=== PATIENT | female | born 1990 | race African-American/Black ===

== ENCOUNTER 2017-06-05 20:19 | Inpatient (IN) | payer OTHER ==
[2017-06-05] VITALS (15 sets, daily range): BP systolic 102–151; BP diastolic 70–121; PULSE 62–132; RESP 18; TEMP 98.1–98.6
[~2017-06-05] VITALS: Ht 162.6 cm; Wt 92.1 kg
[~2017-06-05 20:19] MED LIST: DIPHTH/TETANUS/ACEL PERTUSSIS (BOOSTER) 0.5 ML VIAL/PFS IM ONE; FERRTAB PO; MEASLES, MUMPS, RUBELLA VACCINE 0.5 ML VIAL SQ ONE; PREN1CAP7 PO
[2017-06-05] MEDS ORDERED: LACTATED RINGER'S 1000 ML INJ 1,000 ML IV SCH (20:41)
[2017-06-05] MEDS ORDERED: LACTATED RINGER'S 1000 ML INJ 1,000 ML IV PRN (20:41)
--- NOTE | 2017-06-05 20:41 | HHI.HP ---
HPI Chief Complaint Contractions and by water broke at 6 PM Date Seen: Jun 05, 2017 Time Seen: 20:35 Travel History International Travel<30 Days: No Contact w/Intl Traveler<30Days: No Known Affected Area: No History of Present Illness HPI 27-year-old black female at 40 weeks and 6 days presents in active labor with ruptured membranes, cervix is 4--5 cm 90% and 0 station, heart rate tracing is reactive and contractions are noted on the monitor, [facility] Weeks Gestation: 40 Para: 2 : 3 History Obstetric History Obstetric History Patient had an eclamptic seizure after her first delivery but no blood pressure issues and the second delivery Social History Alcohol Use: No Tobacco Use: No Substance Abuse: No Allergies-Medications (Allergen,Severity, Reaction): Coded Allergies: No Known Allergies (Unverified Adverse Reaction, Unknown, 06/03/17) Home Meds Active Scripts [id number] Sod (Ferraplus) 90-1-50 Mg Tab, 1 TAB PO DAILY, #30 BOTTLE 7 Refills Prov:Paty PorrasP 03/10/17 W/O Vit A W/ Fe Fumar (Citranatal [place]) 27-1-260 Mg Cap, 1 CAP PO DAILY for Nutritional Supplement, #30 CAP 4 Refills Prov:Janeth Ny CNM [facility] 01/08/17 Discontinued Scripts Amoxicillin (Amoxicillin) 500 Mg Tab, 500 MG PO TID for Infection, #21 TAB 0 Refills Prov:Paty PorrasP 05/27/17 Review of Systems General / Constitutional: No: Fever, Weight Gain, Chills, Other Eyes: No: Diploplia, Blurred Vision, Visual changes, Pain, Photophobia HENT: No: Headaches, Vertigo, Lightheadedness Cardiovascular: No: Irregular Rhythm, Chest Pain or Discomfort, Palpitations, Tachycardia, Syncope, Varicosities, Edema, Cyanosis Respiratory: No: Cough, Short of Breath, Other Gastrointestinal: Abdominal Pain, No: Nausea, Vomiting, Diarrhea Genitourinary: No: Decreased Urinary Output, Oliguria Musculoskeletal: No: Limited ROM, Weakness, Cramping, Edema, Pain Skin: No Rash, No Itching, No Dryness, No Lumps, No Change in Pigmentation, No Change in Nails, No Alopecia, No Lesions Neurologic: No: Weakness, Dizziness, Syncope, Focal Abnormalities, Coordination Problem, Headache, Slurred Speech, Seizures Psychiatric: No: Depression, Suicidal Ideations, Homicidal Ideation Endocrine: No: Heat Intolerance, Cold Intolerance, Polydipsia, Polyuria, Other Physical Exam Narrative GENERAL: Well-nourished, well-developed patient. SKIN: Warm and dry. HEAD: Normocephalic and atraumatic. EYES: No scleral icterus. No injection or drainage. ENT: No nasal drainage noted. Mucous membranes pink. Airway patent. NECK: Supple, trachea midline. No JVD. CARDIOVASCULAR: Regular rate and rhythm without murmurs, gallops, or rubs. RESPIRATORY: Breath sounds equal bilaterally. No accessory muscle use. BREASTS: Bilateral exam showed no masses , no retractions, no nipple discharge. ABDOMEN/GI: Abdomen soft, non-tender, bowel sounds present, no rebound, no guarding Gravid to [-40] weeks size Fundal Height: [40-] GENITOURINARY: External Genitalia: intact and normal in appearance BUS glands: [-] Cervix: [-] Dilatation: [4-5-] Effacement: [90-] Station: [0-] Presentation: [vtx-] Membranes: [ ruptured] Uterine Contractions: [reg-] FHT's: Category: [1-] Baseline: [-133] Reactive: [-yes] Variability: [mod-] Decels: [-none] EXTREMITIES: No cyanosis or edema. BACK: Nontender without obvious deformity. No CVA tenderness. NEUROLOGICAL: Awake and alert. Motor and sensory grossly within normal limits. Five out of 5 muscle strength in all muscle groups. Normal speech. Caprini VTE Risk Assessment Caprini VTE Risk Assessment: No/Low Risk (score <= 1) Caprini Risk Assessment Model Point Value = 1 Point Value = 2 Point Value = 3 Point Value = 5 Age 41-60 Minor surgery BMI > 25 kg/m2 Swollen legs Varicose veins or History of unexplained or recurrent spontaneous Oral contraceptives or hormone replacement Sepsis (< 1 month) Serious lung disease, including pneumonia (< 1 month) Abnormal pulmonary function Acute myocardial infarction Congestive heart failure (< 1 month) History of inflammatory bowel disease Medical patient at bed rest Age 61-74 Arthroscopic surgery Major open surgery (> 45 min) Laparoscopic surgery (> 45 min) Malignancy Confined to bed (> 72 hours) Immobilizing plaster cast Central venous access Age >= 75 History of VTE Family history of VTE Factor V Leiden Prothrombin [id number] Lupus anticoagulant Anticardiolipin antibodies Elevated serum homocysteine Heparin-induced thrombocytopenia Other congenital or acquired thrombophilia Stroke (< 1 month) Elective arthroplasty Hip, pelvis, or leg fracture Acute spinal cord injury (< 1 month) Prophylaxis Regimen Total Risk Factor Score Risk Level Prophylaxis Regimen 0-1 Low Early ambulation 2 Moderate Order ONE of the following: *Sequential Compression Device (SCD) *Heparin 5000 units SQ BID 3-4 Higher Order ONE of the following medications: *Heparin 5000 units SQ TID *Enoxaparin/Lovenox 40 mg SQ daily (WT < 150 kg, CrCl > 30 mL/min) *Enoxaparin/Lovenox 30 mg SQ daily (WT < 150 kg, CrCl > 10-29 mL/min) *Enoxaparin/Lovenox 30 mg SQ BID (WT < 150 kg, CrCl > 30 mL/min) AND/OR *Sequential Compression Device (SCD) 5 or more Highest Order ONE of the following medications: *Heparin 5000 units SQ TID (Preferred with Epidurals) *Enoxaparin/Lovenox 40 mg SQ daily (WT < 150 kg, CrCl > 30 mL/min) *Enoxaparin/Lovenox 30 mg SQ daily (WT < 150 kg, CrCl > 10-29 mL/min) *Enoxaparin/Lovenox 30 mg SQ BID (WT < 150 kg, CrCl > 30 mL/min) AND *Sequential Compression Device (SCD) Assessment/Plan Assessment and Plan Patient 27-year-old black female 40 weeks who comes in active labor. She is her cervix is 4-5 cm dilated 90% and 0 station and membranes ruptured at 6 PM this evening Patient does not want epidural. Plan is admission to labor and delivery managed labor appropriately and anticipate vaginal delivery shortly Mynor Ortiz II, MD Jun 05, 2017 20:41
[2017-06-05] MEDS ORDERED: OXYTOCIN 30 UNITS-500ML PREMIX 500 ML IV ONE (20:45)
[2017-06-05] MEDS ORDERED: PENICILLIN G POTASSIUM INJ 5,000,000 UNITS in SODIUM CHLORIDE 0.9% INJ 100 ML IV ONE (20:45)
[2017-06-05] MEDS ORDERED: SODIUM CHLORID 0.9% 500 ML INJ 500 ML IV PRN (20:45)
[2017-06-05] MEDS ORDERED: MINERAL OIL 10 ML VIAL TOPICAL PRN (20:45)
[2017-06-05] MEDS ORDERED: LIDOCAINE HCL 1% 50 ML VIAL INFIL PRN (20:45)
[2017-06-05] MEDS ORDERED: CITRIC ACID-SODIUM CITRATE LIQ 30 ML UDC PO SCH (20:45)
[2017-06-05] MEDS ORDERED: LIDOCAINE HCL 1% 50 ML VIAL I-DERMAL PRN (20:45)
[2017-06-05] MEDS ORDERED: SODIUM CHLOR 0.9% 1000 ML INJ 1,000 ML IV PRN (21:01)
[2017-06-05 21:11] LABS: AUTOMATED NEUTROPHIL # 8.3 TH/MM3 (1.8-7.7); BASOPHIL % 0.1 % (0.0-2.0); EOSINOPHIL % 0.2 % (0.0-4.0); HEMATOCRIT 32.7 % (35.0-46.0); HEMOGLOBIN 11.1 GM/DL (11.6-15.3); LYMPH % 13.2 % (9.0-44.0); LYMPHOCYTE # 1.4 TH/MM3 (1.0-4.8); MEAN CELL VOLUME 88.8 FL (80.0-100.0); MEAN CORPUSCULAR HGB CONC 33.8 % (32.0-36.0); MEAN PLATELET VOLUME 9.2 FL (7.0-11.0); MONO % 7.1 % (0.0-8.0); MONOCYTE # 0.7 TH/MM3 (0-0.9); NEUT % 79.4 % (16.0-70.0); PLATELET COUNT 97 TH/MM3 (150-450); RED BLOOD COUNT 3.68 MIL/MM3 (4.00-5.30); RED CELL DISTRIBUTION WIDTH 13.9 % (11.6-17.2); WHITE BLOOD COUNT 10.5 TH/MM3 (4.0-11.0)
[2017-06-05 21:13] LABS: BILIRUBIN, URINE NEG (NEG); BLOOD, URINE NEG (NEG); GLUCOSE,URINE NEG (NEG); HYALINE CAST, URINE 1 /lpf (RARE); KETONE, URINE 10 mg/dL (NEG); MUCUS URINE FEW /lpf (OCC); NITRITE,URINE NEG (NEG); SQUAMOUS EPITHELIAL CELL URINE 1 /hpf (0-5); URINE COLOR YELLOW (YELLW/STRAW); URINE LEUKOCYTE ESTERASE LARGE (NEG)
--- NOTE | 2017-06-05 22:26 | PD.OB.DELI ---
Weeks gestation: 40 Gest age assessed date: Jun 05, 2017 Pt started active labor?: Yes Anesthesia: None Episiotomy: None Vaginal Delivery: Normal, Spontaneous Presentation: Occiput anterior Nuchal Cord: None Delayed cord clamping (45 sec): Yes Infant: Male Delivery date: Jun 05, 2017 Delivery time: 22:05 One Minute : 8 Five Minute : 9 Placenta: Spontaneous delivery Laceration: Vaginal laceration Estimated blood loss: <100ml Additional Information Delivered by Judd Hutchison MD, R3 Jun 05, 2017 22:26
[2017-06-05] MEDS ORDERED: BENZOCAINE 20% TOPICAL SPRAY 60 ML CAN TOPICAL PRN (22:30)
[2017-06-05] MEDS ORDERED: OXYTOCIN 30 UNITS-500ML PREMIX 500 ML IV SCH (22:30)
[2017-06-05] MEDS ORDERED: DOCUSATE SODIUM 50 MG/SENNA 8.6 MG TAB PO PRN (22:30)
[2017-06-05] MEDS ORDERED: ACETAMINOPHEN 325 MG TAB PO PRN (22:30)
[2017-06-05] MEDS ORDERED: oxyCODONE/ACETAMINOPHEN 5 MG/325 MG TAB PO PRN ×2 (22:30)
[2017-06-05] MEDS ORDERED: ALUMINUM/MAGNESIUM/SIMETH 30 ML CUP PO PRN (22:30)
[2017-06-05] MEDS ORDERED: WITCH HAZEL 50%/GLYCERIN 12.5% 40 PAD JAR TOPICAL PRN (22:30)
[2017-06-05] MEDS ORDERED: ZOLPIDEM TARTRATE 5 MG TAB PO PRN (22:30)
[2017-06-05] MEDS ORDERED: SODIUM CHLORIDE 0.9% FLUSH 10 ML FLUSH IV FLUSH PRN (22:30)
[2017-06-05] MEDS ORDERED: ONDANSETRON ODT 4 MG TAB PO PRN (22:30)
[2017-06-06 00:23] VITALS: BP 132/76; PULSE 68; RESP 16; TEMP 97.9
[2017-06-06] MEDS ORDERED: PENICILLIN G POTASSIUM INJ 2,500,000 UNITS in SODIUM CHLORIDE 0.9% INJ 100 ML IV SCH (01:00)
[2017-06-06] MEDS: IBUPROFEN 800 MG TAB PO PRN (01:35)
[2017-06-06 03:39] VITALS: BP 128/87; PULSE 58; RESP 18; TEMP 98.4; O2SAT 100
[2017-06-06 07:50] VITALS: BP 120/79; PULSE 64; RESP 15; TEMP 97.8
--- NOTE | 2017-06-06 07:51 | HHI.OB ---
Subjective Post Day: 1 Remarks day #1. AFVSS overnight. Pain controlled. Decreased lochia. Denies dysuria. No breast tenderness. She is feeding the baby via breast and bottle. Appetite good. No nausea or vomiting. + flatus. Ambulating well. Denies calf pain, shortness of breath, or cough. Otherwise, she is doing well this morning and has no other complaints. Objective Vitals/I&O Vital Signs Date Time Temp Pulse Resp B/P (MAP) Pulse Ox O2 Delivery O2 Flow Rate FiO2 06/06/17 03:39 98.4 100 06/06/17 03:39 58 18 128/87 (101) 06/06/17 00:23 97.9 68 16 132/76 (94) 06/05/17 23:46 62 135/70 (91) 06/05/17 23:45 98.6 06/05/17 23:30 81 129/85 (100) 06/05/17 23:27 18 06/05/17 23:15 63 125/81 (96) 06/05/17 23:13 18 06/05/17 23:01 132/75 (94) 06/05/17 23:01 67 06/05/17 23:00 18 06/05/17 22:45 18 06/05/17 22:45 132 151/121 (131) 06/05/17 22:30 62 06/05/17 22:30 138/78 (98) 06/05/17 22:22 98.1 18 06/05/17 22:20 86 124/76 (92) 06/05/17 21:06 98.4 06/05/17 20:45 18 06/05/17 20:36 102/85 (91) 06/05/17 20:36 81 Objective Remarks GENERAL: Well-nourished, well-developed patient. CARDIOVASCULAR: Regular rate and rhythm without murmurs, gallops, or rubs. RESPIRATORY: Breath sounds equal bilaterally. No accessory muscle use. ABDOMEN/GI: Abdomen soft, non-tender. Fundus: Firm, non-tender at umbilicus. GENITOURINARY: Light to moderate bleeding. EXTREMITIES: No cyanosis or edema, non-tender, without signs of DVT. Medications and IVs Current Medications Medications (Trade) Dose Ordered Sig/Naomi Route Start Time Stop Time Status Last Admin (NS Flush) 2 ml BID IV FLUSH 06/06/17 09:00 (NS Flush) 2 ml UNSCH PRN IV FLUSH 06/05/17 22:30 (Tylenol) 650 mg Q4H PRN PO 06/05/17 22:30 (Motrin) 800 mg Q8H PRN PO 06/05/17 22:30 06/06/17 01:35 (Percocet 5-325 Mg) 1 tab Q4H PRN PO 06/05/17 22:30 (Percocet 5-325 Mg) 2 tab Q4H PRN PO 06/05/17 22:30 (Americaine 20% Top Spr) 1 spray Q4H PRN TOPICAL 06/05/17 22:30 (Tucks Pads) 1 applic QID PRN TOPICAL 06/05/17 22:30 (Cathie-Colace) 2 tab Q12H PRN PO 06/05/17 22:30 (Ambien) 5 mg HS PRN PO 06/05/17 22:30 (Mag-Al Plus Susp Liq) 15 ml Q8H PRN PO 06/05/17 22:30 (Zofran Odt) 4 mg Q6H PRN PO 06/05/17 22:30 06/06/17 03:06 Assessment/Plan Assessment and Plan 27y/o who is PPD#1 s/p . -Continue routine care. -Percocet and Motrin PRN pain. -Encouraged OOB. Advised pelvic rest for 6 wks. -Will need a f/u appt. within 6 wks. -D/c in 1 day. [facility] OB attending Raven Oreilly MD R1 Jun 06, 2017 07:51
[2017-06-06] MEDS ORDERED: SODIUM CHLORIDE 0.9% FLUSH 10 ML FLUSH IV FLUSH SCH (09:00)
[2017-06-06 22:20] VITALS: BP 126/86; PULSE 57; RESP 18; TEMP 98.3
[2017-06-07] MEDS: IBUPROFEN 800 MG TAB PO PRN ×2 (00:52→14:43)
[2017-06-07] MEDS ORDERED: IBUP1TAB7 PO (06:54)
--- NOTE | 2017-06-07 06:54 | HHI.DCPOC ---
Discharge Care Plan Diagnosis: (1) Normal vaginal delivery Report Symptoms to Your Doctor -Temperature above 100.5 degrees -Redness, of incision or excessive or foul smelling drainage -Unusual pain or calf pain -Increased vaginal bleeding -Painful or difficulty urinating -Feelings of extreme sadness or anxiety after 2 weeks Goals to Promote Your Health * To prevent worsening of your condition and complications * To maintain your health at the optimal level Directions to Meet Your Goals Take your medications as prescribed Follow your dietary instruction Follow activity as directed Ensure plenty of rest for recovery Drink fluids for hydration Keep your appointments as scheduled Take your immunizations and boosters as scheduled If your symptoms worsen call your PCP, if no PCP go to Urgent Care Center or Emergency Room Smoking is Dangerous to Your Health. Avoid second hand smoke Call the 24-hour crisis hotline for domestic abuse at Josephine Amaro MD R2 Jun 07, 2017 06:54
--- NOTE | 2017-06-07 07:48 | HHI.OB ---
Subjective Post Day: 2 Remarks day #2. AFVSS overnight. Pain controlled. Decreased lochia. Denies dysuria. No breast tenderness. She is feeding the baby via breast and bottle. Appetite good. No nausea or vomiting. + flatus. Ambulating well. Denies calf pain, shortness of breath, or cough. Otherwise, she is doing well this morning and has no other complaints. Objective Vitals/I&O Vital Signs Date Time Temp Pulse Resp B/P (MAP) Pulse Ox O2 Delivery O2 Flow Rate FiO2 06/06/17 22:20 98.3 57 18 126/86 (99) 06/06/17 07:50 97.8 64 15 120/79 (93) Objective Remarks GENERAL: Well-nourished, well-developed female. CARDIOVASCULAR: Regular rate and rhythm without murmurs, gallops, or rubs. RESPIRATORY: Breath sounds equal bilaterally. No accessory muscle use. ABDOMEN/GI: Abdomen soft, non-tender. Fundus: Firm, non-tender at umbilicus. GENITOURINARY: Light to moderate bleeding. EXTREMITIES: No cyanosis or edema, non-tender, without signs of DVT. Medications and IVs Current Medications Medications (Trade) Dose Ordered Sig/Naomi Route Start Time Stop Time Status Last Admin (NS Flush) 2 ml BID IV FLUSH 06/06/17 09:00 (NS Flush) 2 ml UNSCH PRN IV FLUSH 06/05/17 22:30 (Tylenol) 650 mg Q4H PRN PO 06/05/17 22:30 (Motrin) 800 mg Q8H PRN PO 06/05/17 22:30 06/07/17 00:52 (Percocet 5-325 Mg) 1 tab Q4H PRN PO 06/05/17 22:30 (Percocet 5-325 Mg) 2 tab Q4H PRN PO 06/05/17 22:30 (Americaine 20% Top Spr) 1 spray Q4H PRN TOPICAL 06/05/17 22:30 (Tucks Pads) 1 applic QID PRN TOPICAL 06/05/17 22:30 (Cathie-Colace) 2 tab Q12H PRN PO 06/05/17 22:30 (Ambien) 5 mg HS PRN PO 06/05/17 22:30 (Mag-Al Plus Susp Liq) 15 ml Q8H PRN PO 06/05/17 22:30 (Zofran Odt) 4 mg Q6H PRN PO 06/05/17 22:30 06/06/17 03:06 Assessment/Plan Assessment and Plan 27y/o who is PPD#2 s/p . -Continue routine care. -Acetaminophen and Motrin PRN pain. -Encouraged OOB. Advised pelvic rest for 6 wks. -Will need a f/u appt. within 6 wks. -D/c today. Josephine Wood Dr[address] MD R2 Jun 07, 2017 07:48
[2017-06-07 08:00] VITALS: BP 115/82; PULSE 79; RESP 16; TEMP 98; O2SAT 100
== END 2017-06-07 18:27 | disposition home or self-care (01) | DRG 775 ==
LOC: HOBED 20:19 → H2EB 20:38 → H1EA 06-06 00:17
PROVIDERS: ADMIT Obstetrics & Gynecology Maternal & Fetal Medicine; ATTEND Obstetrics & Gynecology Maternal & Fetal Medicine
PROC: 10E0XZZ Delivery of Products of Conception, External Approach (ICD-10-PCS; principal; 2017-06-05)
DX: O71.4 Obstetric high vaginal laceration alone (principal); Z37.0 Single live birth; Z3A.40 40 weeks gestation of pregnancy
CPT/HCPCS: 80307; 81001; 85025; 86900; 86901; 87086; J2540; J2590; J7120